=== PATIENT | female | born 1980 ===

== ENCOUNTER 2018-11-24 09:11 | Emergency (ER) | payer OTHER ==
[~2018-11-24] VITALS: Ht 167.6 cm; Wt 79.4 kg
== END 2018-11-24 13:59 | disposition home or self-care (01) ==
LOC: ER 09:11
DX: N39.0 Urinary tract infection, site not specified (principal); B95.1 Streptococcus, group B, as the cause of diseases classified elsewhere

== ENCOUNTER 2018-12-26 13:05 | Emergency (ER) | payer OTHER ==
[~2018-12-26] VITALS: Ht 167.6 cm; Wt 77.1 kg
[2018-12-26] MEDS ORDERED: KETO10TA2 PO (15:53)
[2018-12-26] MEDS ORDERED: ORPHENADRINE C100 MG PO (15:53)
== END 2018-12-26 16:03 | disposition home or self-care (01) ==
LOC: ER 13:05
DX: M62.830 Muscle spasm of back (principal); M54.32 Sciatica, left side; M54.31 Sciatica, right side

== ENCOUNTER 2019-09-07 19:24 | Emergency (ER) | payer OTHER ==
[~2019-09-07] VITALS: Ht 167.6 cm; Wt 68.0 kg
[~2019-09-07 19:24] MED LIST: KETO10TA2 PO; ORPHENADRINE C100 MG PO
[2019-09-07] MEDS ORDERED: NORFLEX100MG PO (21:29)
[2019-09-07] MEDS ORDERED: KETO10TA2 PO (21:29)
== END 2019-09-07 21:34 | disposition home or self-care (01) ==
LOC: ER 19:24
DX: M62.838 Other muscle spasm (principal); M54.2 Cervicalgia